=== PATIENT | female | born 1985 | race Caucasian/White ===

== ENCOUNTER 2023-01-12 04:10 | Emergency (ER) | payer BC ==
[~2023-01-12] VITALS: Ht 154.9 cm; Wt 58.1 kg
[2023-01-12 04:21] VITALS: BP 184/110
--- NOTE | 2023-01-12 04:21 | NUR ---
TO BED AMBULATORY
[2023-01-12] MEDS ORDERED: IBUP-2213 PO (04:57)
[2023-01-12] MEDS ORDERED: BENZ200C4 PO (04:57)
--- NOTE | 2023-01-12 04:57 | NUR ---
Patient received on bed lying comfortably and awake. Alert and oriented x4. No acute distress. Complained of pain on the throat from coughing with the scale of 5/10. Respirations even and unlabored.
[2023-01-12 05:05] VITALS: BP 162/97
--- NOTE | 2023-01-12 05:05 | NUR ---
Patient discharged with v/s stable. Written and verbal after care instructions given and explained. Patient alert, oriented and verbalized understanding of instructions. Ambulatory with steady gait. All questions addressed prior to discharge. ID band removed. Patient advised to follow up with PMD. Rx of Benzonatate and Ibuprofen given. Patient educated on indication of medication including possible reaction and side effects. Opportunity to ask questions provided and answered.
== END 2023-01-12 05:05 | disposition home or self-care (01) ==
LOC: MED 04:10
DX: J02.9 Acute pharyngitis, unspecified (principal); F15.10 Other stimulant abuse, uncomplicated; R05.9 Cough, unspecified; I10 Essential (primary) hypertension; Z71.6 Tobacco abuse counseling; Z79.899 Other long term (current) drug therapy; Z79.1 Long term (current) use of non-steroidal anti-inflammatories (NSAID); Z88.0 Allergy status to penicillin
CPT/HCPCS: 99283